=== PATIENT | female | born 1980 | race Caucasian/White ===

== ENCOUNTER 2017-06-11 23:52 | Emergency (ER) | payer BC ==
[~2017-06-11] VITALS: Ht 172.7 cm; Wt 86.4 kg
[~2017-06-11 23:52] MED LIST: ABILIFY 10MG TA10 MG PO; ABILIFY5 MG PO; ADDERALL XR25 MG PO; ADDERALL XR30 MG PO; ADIPEX-P37.5 MG; ADIPEX-P37.5 MG PO; AMBIEN5 MG PO; BACTRIM DS 8001 TAB PO; BELVIQ; CELEXA PO; CEPHALEXIN500 M1 PO; CLEOCIN HC150 MG/CAP PO; CLEOCIN HCL300 MG PO; DOXYCYCLINE 10100 MG PO; ESKALITH PO; FASTIN30 MG; FASTIN30 MG PO; KLONOPIN 0.5MG0.5 MG PO; LAMICTAL PO; LEVOXYL0.125 MG PO; LORTAB 5/500 501 TAB PO; NORCO 325 MG-51 TAB PO; PREDNISONE20 MG PO; PRENATAL VITAMI1 TA5 PO; PRISTIQ100 MG PO; PROZAC 20MG20 MG PO; REMERON 15M15 MG/TAB PO; SEROQUEL PO; TIROSINT100 MCG PO; VIIBRYD10 MG PO; VYNASE PO; VYVANSE30 MG PO; VYVANSE70 MG PO; WELLBUTRIN XL150 MG PO; ZIPRASIDONE PO; ZITHROMAX Z PA250 MG PO
[2017-06-11 23:55] VITALS: BP 119/77; TEMP 97.8
[2017-06-12] MEDS ORDERED: EFFEXOR 50M50 MG/TAB PO (00:35)
[2017-06-12] MEDS ORDERED: PHENERGAN 25 TA25 MG PO (00:37)
[2017-06-12] MEDS ORDERED: REGLAN 10MG10 MG/TAB PO (00:38)
[2017-06-12] MEDS ORDERED: FLEXERIL 1010 MG/TAB PO (00:38)
[2017-06-12] MEDS ORDERED: NORCO 325 MG-7.1 TAB PO (00:39)
[2017-06-12 01:11] VITALS: PULSE 80
== END 2017-06-12 01:12 | disposition home or self-care (01) ==
LOC: COL.ER 23:52
DX: K94.13 Enterostomy malfunction (principal); Z97.8 Presence of other specified devices

== ENCOUNTER 2017-08-24 10:28 | Emergency (ER) | payer BC ==
[~2017-08-24] VITALS: Ht 172.7 cm; Wt 80.1 kg
[~2017-08-24 10:28] MED LIST changes: +EFFEXOR 50M50 MG/TAB PO; +FLEXERIL 1010 MG/TAB PO; +NORCO 325 MG-7.1 TAB PO; +PHENERGAN 25 TA25 MG PO; +REGLAN 10MG10 MG/TAB PO
[2017-08-24 10:41] VITALS: BP 107/74; PULSE 70; TEMP 97.8
[2017-08-24 11:59] LABS: COLLECTION METHOD CLEAN CATCH
[2017-08-24] MEDS ORDERED: NORCO 325 MG-51 TAB PO (12:11)
[2017-08-24 12:15] LABS: MUCOUS Present /lpf; PH 6 (5-8); URINE APPEARANCE Clear; URINE BACTERIA Many /hpf; URINE BILIRUBIN Negative (NEGATIVE); URINE BLOOD Negative (NEGATIVE); URINE COLOR Yellow; URINE GLUCOSE Negative (NEGATIVE); URINE KETONE Trace (NEGATIVE); URINE LEUKOCYTE ESTERASE Trace (NEGATIVE); URINE PROTEIN(semi-quant) Negative (NEGATIVE); URINE UROBILINOGEN Negative (NEGATIVE)
[2017-08-24 12:16] LABS: URINE WBC 20-50 /hpf
[2017-08-24] MEDS ORDERED: CIPRO 500MG TA500 MG PO (12:21)
== END 2017-08-24 12:34 | disposition home or self-care (01) ==
LOC: COL.ER 10:28
PROVIDERS: Physician Assistant
DX: K94.29 Other complications of gastrostomy (principal); N39.0 Urinary tract infection, site not specified; Z90.49 Acquired absence of other specified parts of digestive tract

== ENCOUNTER 2018-03-10 12:53 | Emergency (ER) | payer BC ==
[~2018-03-10] VITALS: Ht 172.7 cm; Wt 72.3 kg
[~2018-03-10 12:53] MED LIST changes: +CIPRO 500MG TA500 MG PO
[2018-03-10 12:55] VITALS: TEMP 99.3
[2018-03-10 13:24] LABS: COLLECTION METHOD CLEAN CATCH
[2018-03-10 13:27] LABS: BASO % 0.3 % (0.0-2.0); EOS # 0.2 (0.0-0.7); EOS % 2.2 % (0-4.0); GRAN # 4.2 (1.4-6.5); GRAN % 61.9 % (42.2-75.2); HEMATOCRIT 39.4 % (37.0-47.0); LYMPH # 2.1 (1.2-3.4); LYMPH % 30.4 % (20.0-51.0); MEAN CELL VOLUME 81 fl (80.0-100.0); MEAN CORPUSCULAR HEMOGLOBIN 27 pg (27.0-31.0); MEAN CORPUSCULAR HGB CONC 33 g/dl (33.0-37.0); MEAN PLATELET VOLUME 8.8 fl (7.4-10.4); MONO # 0.3 (0.1-0.6); MONO % 4.9 % (1.7-9.3); PLATELET COUNT 337 K/mm3 (130-400); RED BLOOD COUNT 4.88 M/mm3 (4.10-5.30); REDCELL DISTRIBUTION WIDTH-CV 14.6 % (11.5-14.5)
[2018-03-10 13:37] LABS: ALANINE AMINOTRANSFERASE 26 U/L (9-52); ALBUMIN 3.9 gm/dL (3.5-5.0); ALKALINE PHOSPHATASE 74 U/L (50-136); ANION GAP 13 mmol/L (7-16); AST,SGOT 26 U/L (15-37); BILIRUBIN,TOTAL 0.6 mg/dL (0.0-1.0); BLOOD UREA NITROGEN 7 mg/dL (7-17); CALCIUM 9.2 mg/dL (8.4-10.2); CARBON DIOXIDE 25 mmol/L (22-30); CHLORIDE 104 mmol/L (98-107); CREATININE, serum 0.64 mg/dL (0.52-1.25); GLUCOSE 92 mg/dL (74-106); POTASSIUM 4.1 mmol/L (3.4-5.0); SODIUM 142 mmol/L (137-145); TOTAL PROTEIN 8.2 gm/dL (6.4-8.2)
[2018-03-10 13:41] LABS: MUCOUS Present /lpf; PH 5 (5-8); SQUAMOUS EPITHELIAL 0-2 /hpf; URINE APPEARANCE Clear; URINE BACTERIA None Seen /hpf; URINE BILIRUBIN Negative (NEGATIVE); URINE BLOOD Negative (NEGATIVE); URINE COLOR Yellow; URINE GLUCOSE Negative (NEGATIVE); URINE KETONE Negative (NEGATIVE); URINE LEUKOCYTE ESTERASE Negative (NEGATIVE); URINE NITRATE Negative (NEGATIVE); URINE PROTEIN(semi-quant) Negative (NEGATIVE); URINE RBC 0-2 /hpf; URINE UROBILINOGEN Negative (NEGATIVE)
[2018-03-10 13:42] LABS: ACETAMINOPHEN < 10 ug/mL (10-30); ALCOHOL(ethanol),MEDICAL < 10 mg/dL; SALICYLATE < 1.0 mg/dL
[2018-03-10 13:42] LABS: TRICYCLIC ANTIDEPRESS URINE NEGATIVE
[2018-03-10] MEDS ORDERED: LEVOXYL0.2 MG PO (15:34)
[2018-03-10] MEDS ORDERED: WELLBUTRIN XL300 M1 PO (15:34)
[2018-03-10] MEDS ORDERED: GEODON60 MG PO (15:34)
[2018-03-10] MEDS ORDERED: BUSPAR10 MG PO (15:35)
[2018-03-10] MEDS ORDERED: DESYREL 50MG50 MG PO (15:35)
[2018-03-10] MEDS ORDERED: EFFEXOR-XR150 MG PO (15:35)
[2018-03-10 23:46] VITALS: BP 120/80; PULSE 85
== END 2018-03-10 23:48 ==
LOC: COL.ER 12:53
PROVIDERS: Nurse Practitioner
DX: R45.851 Suicidal ideations (principal); F31.9 Bipolar disorder, unspecified; F60.3 Borderline personality disorder; Z87.891 Personal history of nicotine dependence

== ENCOUNTER 2018-06-08 17:54 | Emergency (ER) | payer BC ==
[~2018-06-08] VITALS: Ht 172.7 cm; Wt 70.0 kg
[~2018-06-08 17:54] MED LIST changes: +BUSPAR10 MG PO; +DESYREL 50MG50 MG PO; +EFFEXOR-XR150 MG PO; +GEODON60 MG PO; +LEVOXYL0.2 MG PO; +WELLBUTRIN XL300 M1 PO
[2018-06-08 18:03] VITALS: TEMP 99.2
[2018-06-08] MEDS ORDERED: GEODON80 MG PO (18:17)
[2018-06-08 18:28] LABS: COLLECTION METHOD CLEAN CATCH
[2018-06-08 18:36] LABS: BUDDING YEAST Present /hpf; PH 7 (5-8); SQUAMOUS EPITHELIAL 20-50 /hpf; URINE APPEARANCE Turbid; URINE BACTERIA Occasional /hpf; URINE BILIRUBIN Negative (NEGATIVE); URINE BLOOD 1+ (NEGATIVE); URINE COLOR Yellow; URINE GLUCOSE Negative (NEGATIVE); URINE KETONE Negative (NEGATIVE); URINE LEUKOCYTE ESTERASE 3+ (NEGATIVE); URINE NITRATE Negative (NEGATIVE); URINE PROTEIN(semi-quant) 1+ (NEGATIVE); URINE RBC 20-50 /hpf; URINE UROBILINOGEN Negative (NEGATIVE)
[2018-06-08 18:42] LABS: TRICYCLIC ANTIDEPRESS URINE NEGATIVE
[2018-06-08 18:53] LABS: BASO % 0.4 % (0.0-2.0); EOS # 0.1 (0.0-0.7); EOS % 1.6 % (0-4.0); GRAN # 2.9 (1.4-6.5); GRAN % 52.6 % (42.2-75.2); HEMOGLOBIN 12.3 g/dl (12.5-16.0); LYMPH # 2.1 (1.2-3.4); LYMPH % 37.9 % (20.0-51.0); MEAN CELL VOLUME 81 fl (80.0-100.0); MEAN CORPUSCULAR HEMOGLOBIN 27 pg (27.0-31.0); MEAN CORPUSCULAR HGB CONC 33 g/dl (33.0-37.0); MEAN PLATELET VOLUME 8.7 fl (7.4-10.4); MONO # 0.4 (0.1-0.6); MONO % 7.3 % (1.7-9.3); PLATELET COUNT 324 K/mm3 (130-400); RED BLOOD COUNT 4.54 M/mm3 (4.10-5.30); REDCELL DISTRIBUTION WIDTH-CV 13.2 % (11.5-14.5)
[2018-06-08 18:56] LABS: ALANINE AMINOTRANSFERASE 23 U/L (9-52); ALBUMIN 3.9 gm/dL (3.5-5.0); ALKALINE PHOSPHATASE 65 U/L (50-136); ANION GAP 9 mmol/L (7-16); AST,SGOT 17 U/L (15-37); BILIRUBIN,TOTAL 0.1 mg/dL (0.0-1.0); BLOOD UREA NITROGEN 9 mg/dL (7-17); CALCIUM 9.2 mg/dL (8.4-10.2); CARBON DIOXIDE 26 mmol/L (22-30); CHLORIDE 101 mmol/L (98-107); CREATININE, serum 0.79 mg/dL (0.52-1.25); GLUCOSE 71 mg/dL (74-106); POTASSIUM 3.7 mmol/L (3.4-5.0); SODIUM 136 mmol/L (137-145); TOTAL PROTEIN 7.4 gm/dL (6.4-8.2)
[2018-06-08 18:57] LABS: ACETAMINOPHEN < 10 ug/mL (10-30); ALCOHOL(ethanol),MEDICAL < 10 mg/dL; HEMATOCRIT 36.8 % (37.0-47.0); SALICYLATE < 1.0 mg/dL
[2018-06-09 00:22] VITALS: BP 124/69; PULSE 90
== END 2018-06-09 00:49 ==
LOC: COL.ER 17:54
PROVIDERS: Emergency Medicine
DX: R45.851 Suicidal ideations (principal); F32.9 Major depressive disorder, single episode, unspecified; F41.9 Anxiety disorder, unspecified; E03.9 Hypothyroidism, unspecified; F17.210 Nicotine dependence, cigarettes, uncomplicated; F60.3 Borderline personality disorder; Z98.84 Bariatric surgery status

== ENCOUNTER 2018-11-26 09:44 | Observation (INO) | payer BC ==
[~2018-11-26] VITALS: Ht 172.7 cm; Wt 67.2 kg
[~2018-11-26 09:44] MED LIST changes: +GEODON80 MG PO
[2018-11-26 10:14] LABS: BASO % 0.3 % (0.0-2.0); EOS % 0.2 % (0-4.0); GRAN % 77.9 % (42.2-75.2); HEMATOCRIT 43.4 % (37.0-47.0); HEMOGLOBIN 14.3 g/dl (12.5-16.0); LYMPH # 1.2 (1.2-3.4); LYMPH % 18.5 % (20.0-51.0); MEAN CELL VOLUME 84 fl (80.0-100.0); MEAN CORPUSCULAR HEMOGLOBIN 28 pg (27.0-31.0); MEAN CORPUSCULAR HGB CONC 33 g/dl (33.0-37.0); MONO # 0.2 (0.1-0.6); MONO % 2.8 % (1.7-9.3); PLATELET COUNT 310 K/mm3 (130-400); RED BLOOD COUNT 5.16 M/mm3 (4.10-5.30); REDCELL DISTRIBUTION WIDTH-CV 13.7 % (11.5-14.5)
[2018-11-26 10:21] LABS: ALANINE AMINOTRANSFERASE 13 U/L (9-52); ALBUMIN 4.7 gm/dL (3.5-5.0); ALKALINE PHOSPHATASE 81 U/L (50-136); ANION GAP 11 mmol/L (7-16); AST,SGOT 20 U/L (15-37); BILIRUBIN,TOTAL 0.5 mg/dL (0.0-1.0); BLOOD UREA NITROGEN 16 mg/dL (7-17); CALCIUM 10.2 mg/dL (8.4-10.2); CARBON DIOXIDE 26 mmol/L (22-30); CHLORIDE 106 mmol/L (98-107); CREATININE, serum 0.89 mg/dL (0.52-1.25); GLUCOSE 143 mg/dL (74-106); LIPASE 55 U/L (23-300); SODIUM 142 mmol/L (137-145); TOTAL PROTEIN 8.7 gm/dL (6.4-8.2)
[2018-11-26 10:25] LABS: C-REACTIVE PROTEIN < 0.5 mg/dL (0.0-0.9)
[2018-11-26 12:05] LABS: COLLECTION METHOD CLEAN CATCH
[2018-11-26 12:12] LABS: MUCOUS Present /lpf; PH 8 (5-8); SQUAMOUS EPITHELIAL 0-2 /hpf; URINE APPEARANCE Clear; URINE BACTERIA None Seen /hpf; URINE BILIRUBIN Negative (NEGATIVE); URINE BLOOD Negative (NEGATIVE); URINE COLOR Yellow; URINE GLUCOSE Negative (NEGATIVE); URINE KETONE Trace (NEGATIVE); URINE LEUKOCYTE ESTERASE Negative (NEGATIVE); URINE NITRATE Negative (NEGATIVE); URINE PROTEIN(semi-quant) Negative (NEGATIVE); URINE RBC 0-2 /hpf; URINE UROBILINOGEN Negative (NEGATIVE)
[2018-11-26] MEDS ORDERED: SEROQUEL400 MG PO (13:23)
--- NOTE | 2018-11-26 14:00 | NUR ---
Received patient from ED with abdominal pain, N/V. States no bowel movement for 5 or 6 days. Hospitalist saw patient. IV fluids started. Dulcolax suppository given per order. Medicated with Morphine for pain.
[2018-11-26 14:10] VITALS: BP 123/79; PULSE 72; TEMP 98.2
--- NOTE | 2018-11-26 18:00 | NUR ---
States had some stool after suppository. States abdominal pain a little better.
[2018-11-26 20:21] VITALS: BP 105/73; PULSE 61; TEMP 98.3
--- NOTE | 2018-11-26 21:40 | NUR ---
Pt resting in bed watching TV, friend in room with Pt, assessments complete, left Pt bed in lowest position, call light in reach.
[2018-11-27 00:32] VITALS: BP 92/60; PULSE 65; TEMP 98.3
[2018-11-27 04:00] VITALS: BP 108/67; PULSE 75; TEMP 98.3
--- NOTE | 2018-11-27 05:45 | NUR ---
Pt slept throught the night, no C/O pian during the shift, Pt had 2 bowel movoments overnight. VS have remained stable.
--- NOTE | 2018-11-27 05:47 | NUR ---
Pt slept some of the night, soem C/O pain early, she has not had any bout of Nausea or vomiting during the night, VS have remained stable.
[2018-11-27 09:28] VITALS: BP 117/78; PULSE 74; TEMP 98.1
[2018-11-27 11:58] VITALS: BP 113/78; PULSE 68; TEMP 98.2
[2018-11-27 15:34] VITALS: BP 110/77; PULSE 70; TEMP 98
--- NOTE | 2018-11-27 18:00 | NUR ---
Slept several hours in AM. Less complaints of abdominal pain today. Denies passing gas. Abdomen soft with hypoactive bowel sounds. Dulcolax suppository given per order. Started on clear liquids. Medicated with Zofran and Morphine for c/o nausea and pain after drinking liquids.
[2018-11-27 20:32] VITALS: BP 100/67; PULSE 65; TEMP 98
--- NOTE | 2018-11-27 21:21 | NUR ---
RESTING QUIETLY. NO c/o N/V. PT STATES SHE'S FEELING MUCH BETTER THAN WHEN SHE WAS ADMITTED. PT DENIES SHE'S PASSING GAS.
[2018-11-28 04:45] VITALS: BP 104/73; PULSE 64; TEMP 97.8
--- NOTE | 2018-11-28 05:51 | NUR ---
RESTING QUIETLY. NO c/o PAIN DURING THE NIGHT. NO c/o N/V. INDEPENDENT IN ROOM.
[2018-11-28 07:28] VITALS: BP 117/74; PULSE 66; TEMP 98
--- NOTE | 2018-11-28 08:00 | NUR ---
PATIENT IS DROWSY AND RESTING QUIETLY IN BED. PATIENT AROUSES EASILY TO NAME. PATIENT IS A&O. VSS. BOWEL SOUNDS ACTIVE ALL FOUR QUADRANTS. PATIENT TOLERATING CLEAR LIQUIDS WITHOUT ANY COMPLAINTS OF N/V. POSITIVE PEDAL PULSES EQUAL BILATERALLY. IV FLUIDS INFUSING TO LEFT WRIST IV VIA PUMP. CALL LIGHT WITHIN REACH. PATIENT DENIES ANY OTHER NEEDS AT THIS TIME.
--- NOTE | 2018-11-28 10:30 | NUR ---
PATIENT TOLERATING CLEAR LIQUID DIET. DIET ADVANCED TO FULL LIQUIDS PER DR. LARSON. IF TOLERATING FULL LIQUIDS WITHOUT N/V. PATIENT MAY ADVANCE TO BLAND DIET THIS AFTERNOON. WILL CONTINUE TO MONITOR.
--- NOTE | 2018-11-28 10:48 | NUR ---
SW attended clinical rounding and met with patient to discuss discharge planning. Patient lives independently in [place]. Her PCP is Dr Hardeep Baird and she obtains her medications from [facility] in [place]. Patient plans on discharging home today. No unmet discharge needs identified.
[2018-11-28 11:17] VITALS: BP 103/70; PULSE 87; TEMP 98
--- NOTE | 2018-11-28 11:56 | NUR ---
PATIENT TOLERATING FULL LIQUIDS WITHOUT ANY COMPLAINTS OF N/V. DIET ADVANCED TO BLAND DIET PER DR. LARSON.
--- NOTE | 2018-11-28 14:45 | NUR ---
PATIENT CALLED OUT REQUESTING MEDICATION FOR NAUSEA. PATIENT REPORTS THAT SHE HAD A SMALL EPISODE OF EMESIS. PATIENT GIVEN PRN DOSE OF IV ZOFRAN. WILL CONTINUE TO MONITOR.
[2018-11-28] MEDS ORDERED: ZOFRAN ODT4 MG PO (14:53)
[2018-11-28 15:33] VITALS: BP 106/74; PULSE 80; TEMP 98.6
--- NOTE | 2018-11-28 15:50 | NUR ---
PATIENT'S LEFT WRIST INT DC'D PER PENDING DISCHARGE. PATIENT TOLERATED WELL.
--- NOTE | 2018-11-28 16:00 | NUR ---
PATIENT PERSONAL BELONGINGS GATHERED. PATIENT AMBULATED TO PERSONAL VEHICLE WITH SURGICAL STAFF. PATIENT DISCHARGED.
== END 2018-11-28 16:00 | disposition home or self-care (01) ==
LOC: COL.ER 09:44 → SURG 12:46
PROVIDERS: Family Medicine; ADMIT Student in an Organized Health Care Education/Training Program
DX: A08.4 Viral intestinal infection, unspecified (principal); R11.2 Nausea with vomiting, unspecified; R10.9 Unspecified abdominal pain; I10 Essential (primary) hypertension; E03.9 Hypothyroidism, unspecified; F32.9 Major depressive disorder, single episode, unspecified; Z98.84 Bariatric surgery status; K59.00 Constipation, unspecified; Z90.49 Acquired absence of other specified parts of digestive tract; Z87.891 Personal history of nicotine dependence; Z88.2 Allergy status to sulfonamides
CPT/HCPCS: 99239; G0378; J1170; J2270; J2405; J3010; J7030; Q9967